=== PATIENT | male | born 1990 | race Caucasian/White ===

== ENCOUNTER 2018-08-31 18:51 | Emergency (ER) | payer OTHER ==
[2018-08-31 18:52] VITALS: BMI 28.8
[2018-08-31 18:58] VITALS: BP 125/83; PULSE 101; RESP 18; TEMP 98; O2SAT 97
[2018-08-31] MEDS ORDERED: Sodium Chloride 0.9% 1,000 ML IV STA (19:32)
[2018-08-31 20:01] LABS: BASO # 0.1 K/uL (0.0-0.2); BASO % 0.9 % (0.0-2.0); EOS # 0.1 K/uL (0.0-0.7); EOS % 0.5 % (0.0-4.0); HEMOGLOBIN 14.2 g/dL (12.0-18.0); LYMPH # 2.4 K/uL (1.0-4.3); LYMPH % 20.5 % (20.0-40.0); MEAN CELL VOLUME 85.2 fl (80.0-94.0); MEAN CORPUSCULAR HEMOGLOBIN 27.5 pg (27.0-31.0); MEAN CORPUSCULAR HGB CONC 32.2 g/dL (33.0-37.0); MONO # 1.1 K/uL (0.0-0.8); MONO % 9.8 % (0.0-10.0); NEUT # 7.8 K/uL (1.8-7.0); NEUT % 68.3 % (50.0-75.0); RBC 5.18 Mil/uL (4.40-5.90); WHITE BLOOD COUNT 11.5 K/uL (4.8-10.8)
[2018-08-31 20:21] LABS: ALB/GLOB RATIO 1.6 (1.0-2.1); ALBUMIN 4.7 g/dL (3.5-5.0); ALT/SGPT 17 U/L (21-72); AST/SGOT 28 U/L (17-59); BLOOD UREA NITROGEN 10 mg/dl (9-20); CALCIUM 9.7 mg/dL (8.4-10.2); GFR NON-AFRICAN AMERICAN > 60
--- NOTE | 2018-08-31 20:30 | ED PDOC ---
HPI: Abdomen Time Seen by Provider: 08/31/18 19:23 Chief Complaint (Nursing): Back Pain Chief Complaint (Provider): Abdominal and Flank Pain History Per: Patient History/Exam Limitations: no limitations Onset/Duration Of Symptoms: Hrs (x4) Associated Symptoms: denies: Nausea, Vomiting Additional Complaint(s): 28 year old Telugu male with a history of kidney stones presents to the ED with right flank and abdominal pain onset 3pm. Patient had a ureteral stent removed on August [address] Cerna and has since had no complications. He is still on Flomax. Today he had sharp, sudden pain, rated 6/7 out of 10 in severity. Patient states pain has resolved since. He denies any hematuria but states urine appears dark in color. Patient denies nausea, vomiting or any other medical complaints. PMD: none provided Past Medical History Reviewed: Historical Data, Nursing Documentation, Vital Signs Vital Signs: Last Vital Signs Temp 98 F 08/31/18 18:56 Pulse 101 H 08/31/18 18:56 Resp 18 08/31/18 18:56 BP 125/83 08/31/18 18:56 Pulse Ox 97 08/31/18 18:56 - Medical History PMH: Kidney Stones, Chronic Kidney Disease - Family History Family History: States: Unknown Family Hx - Social History Current smoker - smoking cessation education provided: No Ex-Smoker (has not smoked in the last 12 months): No Alcohol: None Drugs: Denies - Home Medications Home Medications: Ambulatory Orders Medication Instructions Recorded No Known Home Med 08/12/18 - Allergies Allergies/Adverse Reactions: Allergies Allergy/AdvReac Type Severity Reaction Status Date / Time Sulfa (Sulfonamide Allergy Intermediate ITCHING Verified 08/31/18 18:56 Antibiotics) Review of Systems ROS Statement: Except As Marked, All Systems Reviewed And Found Negative Gastrointestinal: Positive for: Abdominal Pain (and flank pain). Negative for: Nausea, Vomiting Physical Exam - Reviewed Nursing Documentation Reviewed: Yes Vital Signs Reviewed: Yes - Physical Exam Appears: Positive for: Non-toxic, No Acute Distress Head Exam: Positive for: ATRAUMATIC, NORMOCEPHALIC Skin: Positive for: Normal Color, Warm, Dry Eye Exam: Positive for: Normal appearance, EOMI, PERRL Cardiovascular/Chest: Positive for: Regular Rate, Rhythm. Negative for: Murmur Respiratory: Positive for: Normal Breath Sounds. Negative for: Respiratory Distress Gastrointestinal/Abdominal: Positive for: Normal Exam, Soft. Negative for: Tenderness Back: Positive for: Normal Inspection Extremity: Positive for: Normal ROM (upper and lower) Neurological/Psych: Positive for: Awake, Alert, Oriented - Laboratory Results Result Diagrams: 08/31/18 19:45 08/31/18 19:45 Lab Results: Total Bilirubin 0.6 mg/dl (0.2-1.3) 08/31/18 19:45 AST 28 U/L (17-59) 08/31/18 19:45 ALT 17 U/L (21-72) L 08/31/18 19:45 Alkaline Phosphatase 66 U/L (38-126) 08/31/18 19:45 Total Protein 7.6 G/DL (6.3-8.2) 08/31/18 19:45 Albumin 4.7 g/dL (3.5-5.0) 08/31/18 19:45 Globulin 2.9 gm/dL (2.2-3.9) 08/31/18 19:45 Albumin/Globulin Ratio 1.6 (1.0-2.1) 08/31/18 19:45 - ECG O2 Sat by Pulse Oximetry: 97 (RA) Pulse Ox Interpretation: Normal Medical Decision Making Medical Decision Making: Time: 1922 Impression: 28 y/o with renal colic in setting of previous kidney stones Plan: --labs --CT deferred at patients request due to previous imaging and radiation expo sure. Instead KUB ordered. --Patient declined any pain medication. Time: 2149 Abdomen XR FINDINGS: LUNG BASES: The visualized lung bases appear clear. BOWEL: Bowel gas pattern unremarkable. No evidence of obstruction. PERITONEUM/SOFT TISSUES: No free air evident. Suspected 2 mm right lower pole renal calculus is seen. BONES: No aggressive appearing osseous lesion seen. IMPRESSION: No acute intraabdominal abnormality evident. Probable 2 mm right lower pole renal calculus. Time: 2225 --Labs reviewed, no clinically significant abnormalities. Patient remains asymptomatic. Advised to follow up with Dr. Cerna, urologist. Diagnosis renal colic. Scribe Attestation: Documented by Shauna Burger, acting as a scribe for Josr Arcos MD. Provider Scribe Attestation: All medical record entries made by the Scribe were at my direction and personally dictated by me. I have reviewed the chart and agree that the record accurately reflects my personal performance of the history, physical exam, medical decision making, and the department course for this patient. I have also personally directed, reviewed, and agree with the discharge instructions and disposition. Disposition - Clinical Impression Clinical Impression: Renal colic on right side - Disposition Disposition Time: 22:26 Condition: STABLE Instructions: Renal Colic Forms: [employer] (Hong Konger)
[2018-08-31 21:58] LABS: SQUAMOUS EPITHIAL < 1 /hpf (0-5); URINE BILIRUBIN NEGATIVE (NEGATIVE); URINE BLOOD MODERATE (NEGATIVE); URINE CLARITY SLIGHTY-CLOUDY (Clear); URINE COLOR YELLOW (YELLOW); URINE GLUCOSE (UA) NEG (NEGATIVE); URINE LEUKOCYTE ESTERASE NEG Leu/uL (Negative); URINE PROTEIN 100 mg/dL (NEGATIVE); URINE UROBILINOGEN 0.2-1.0 mg/dL (0.2-1.0)
--- NOTE | 2018-09-01 09:08 | RAD ---
Date of service: 08/31/2018 HISTORY: renal colic COMPARISON: 08/06/2018 FINDINGS: BOWEL: There is a tiny possible calcification overlying the lower pole of the right kidney and seen on the prior study. Previously identified right ureteral stent has been removed. No appreciable ureteral calcification or left renal calcification is seen. Bony structures are unchanged. Bowel gas is normal. No pelvic calcification or bladder calcification is suspected. BONES: Unchanged. OTHER FINDINGS: None. IMPRESSION: Tiny calcification overlying the lower pole the right kidney. Status post removal of right ureteral stent.
== END 2018-08-31 22:31 | disposition home or self-care (01) ==
LOC: H.ER 18:51
DX: N23 Unspecified renal colic (principal); N18.9 Chronic kidney disease, unspecified; Z87.442 Personal history of urinary calculi
CPT/HCPCS: 74018; 80053; 81003; 85025; 96360; 99282; J7030

== ENCOUNTER 2018-09-15 23:42 | Emergency (ER) | payer OTHER ==
[2018-09-15 23:43] VITALS: BMI 28.8
[2018-09-16] MEDS ORDERED: Sodium Chloride 0.9% 1,000 ML IV STA (01:00)
[2018-09-16 01:30] LABS: SQUAMOUS EPITHIAL < 1 /hpf (0-5); URINE BILIRUBIN NEGATIVE (NEGATIVE); URINE BLOOD MODERATE (NEGATIVE); URINE CLARITY SLIGHTY-CLOUDY (Clear); URINE COLOR YELLOW (YELLOW); URINE GLUCOSE (UA) NEG (NEGATIVE); URINE HYALINE CAST 0-2 /hpf (0-2); URINE LEUKOCYTE ESTERASE TRACE Leu/uL (Negative); URINE PROTEIN 100 mg/dL (NEGATIVE); URINE UROBILINOGEN 0.2-1.0 mg/dL (0.2-1.0)
[2018-09-16 01:46] LABS: BASO # 0.1 K/uL (0.0-0.2); BASO % 0.8 % (0.0-2.0); EOS # 0.1 K/uL (0.0-0.7); EOS % 0.9 % (0.0-4.0); LYMPH # 2.9 K/uL (1.0-4.3); LYMPH % 24.2 % (20.0-40.0); MEAN CELL VOLUME 84.5 fl (80.0-94.0); MEAN CORPUSCULAR HEMOGLOBIN 27.6 pg (27.0-31.0); MEAN CORPUSCULAR HGB CONC 32.6 g/dL (33.0-37.0); MEAN PLATELET VOLUME 8.3 fl (7.2-11.7); MONO # 1.4 K/uL (0.0-0.8); MONO % 11.9 % (0.0-10.0); NEUT # 7.4 K/uL (1.8-7.0); NEUT % 62.2 % (50.0-75.0); NRBC % 0.1 % (0.0-0.0); RBC 4.72 Mil/uL (4.40-5.90); RED CELL DISTRIBUTION WIDTH 13.7 % (11.5-14.5); WHITE BLOOD COUNT 11.8 K/uL (4.8-10.8)
--- NOTE | 2018-09-16 01:58 | ED PDOC ---
HPI: Male Pain Time Seen by Provider: 09/16/18 00:00 Chief Complaint (Nursing): Male Genitourinary Chief Complaint (Provider): Flank and Bladder Pain History Per: Patient History/Exam Limitations: no limitations Additional Complaint(s): 28 y/o male with history of kidney stones presents to the ED with flank radiatin g around to bladder since yesterday. Patient had a renal stent on his right side taken out a month ago; stent was placed 2 months ago by the urologist. Patient reports he drank lots of liquids and took Tramadol yesterday with no relief. Denies having any feeling of needing to vomit just complaining of pain. Past Medical History Reviewed: Historical Data, Nursing Documentation, Vital Signs Vital Signs: Last Vital Signs Temp 99 F 09/16/18 00:15 Pulse 88 09/16/18 00:15 Resp 18 09/16/18 00:15 BP 129/80 09/16/18 00:15 Pulse Ox 99 09/16/18 00:15 - Medical History PMH: Kidney Stones, Chronic Kidney Disease - Surgical History Surgical History: No Surg Hx - Family History Family History: States: Unknown Family Hx - Social History Current smoker - smoking cessation education provided: No Alcohol: None Drugs: Denies - Home Medications Home Medications: Ambulatory Orders Medication Instructions Recorded Ibuprofen [Motrin] 600 mg PO Q6H PRN #20 tab 09/16/18 Nitrofurantoin Macrocrystals 100 mg PO BID #14 cap 09/16/18 [Macrobid] Tamsulosin [Flomax] 0.4 mg PO DAILY #14 cap 09/16/18 - Allergies Allergies/Adverse Reactions: Allergies Allergy/AdvReac Type Severity Reaction Status Date / Time Sulfa (Sulfonamide Allergy Intermediate ITCHING Verified 08/31/18 18:56 Antibiotics) Review of Systems ROS Statement: Except As Marked, All Systems Reviewed And Found Negative Gastrointestinal: Positive for: Abdominal Pain (bladder and flank). Negative for: Vomiting Physical Exam - Reviewed Nursing Documentation Reviewed: Yes Vital Signs Reviewed: Yes - Physical Exam Appears: Positive for: Well, Non-toxic, No Acute Distress Head Exam: Positive for: ATRAUMATIC, NORMAL INSPECTION, NORMOCEPHALIC Skin: Positive for: Normal Color, Warm, DRY Eye Exam: Positive for: EOMI, Normal appearance, PERRL ENT: Positive for: Normal ENT Inspection Neck: Positive for: Normal, Painless ROM Cardiovascular/Chest: Positive for: Regular Rate, Rhythm. Negative for: Murmur Respiratory: Positive for: Normal Breath Sounds. Negative for: Respiratory Distress Gastrointestinal/Abdominal: Positive for: Bowel Sounds, Soft, Tenderness (mild tenderness over bladder) Back: Positive for: Normal Inspection. Negative for: L CVA Tenderness, R CVA Tenderness, Vertebral Tenderness Extremity: Positive for: Normal ROM. Negative for: Pedal Edema, Deformity Neurological/Psych: Positive for: Awake, Alert, Normal Tone. Negative for: Motor/Sensory Deficits - Laboratory Results Result Diagrams: 09/16/18 01:39 09/16/18 01:39 Lab Results: Urine Color Yellow (YELLOW) 09/16/18 01:15 Urine Clarity Slighty-cloudy (Clear) 09/16/18 01:15 Urine pH 5.0 (5.0-8.0) 09/16/18 01:15 Ur Specific [place] 1.025 (1.003-1.030) 09/16/18 01:15 Urine Protein 100 mg/dL (NEGATIVE) 09/16/18 01:15 Urine Glucose (UA) Neg mg/dL (NEGATIVE) 09/16/18 01:15 Urine Ketones Negative mg/dL (NEGATIVE) 09/16/18 01:15 Urine Blood Moderate (NEGATIVE) 09/16/18 01:15 Urine Nitrate Negative (NEGATIVE) 09/16/18 01:15 Urine Bilirubin Negative (NEGATIVE) 09/16/18 01:15 Urine Urobilinogen 0.2-1.0 mg/dL (0.2-1.0) 09/16/18 01:15 Ur Leukocyte Esterase Trace Spencer/uL (Negative) 09/16/18 01:15 Urine RBC (Auto) 138 /hpf (0-3) H 09/16/18 01:15 Urine Microscopic WBC 1 /hpf (0-5) 09/16/18 01:15 Ur Squamous Epith Cells < 1 /hpf (0-5) 09/16/18 01:15 Hyaline Casts 0-2 /hpf (0-2) 09/16/18 01:15 - ECG O2 Sat by Pulse Oximetry: 99 (RA) Pulse Ox Interpretation: Normal Medical Decision Making Medical Decision Making: Time: 01:00 Initial Impression: r flank pain rule out stone, uti Initial Plan: * CT Abd Pelvis * Labs * IV Fluids * Toradol 02:[address] as well as Toradol as states wants to go natural without medications and also doenst want the radiation from the CT. 03:51 Patient labs are significant for slightly elevated WBC. Urine shows blood and 138 RBC. 05:08 US Renal Findings: Unremarkable left kidney measuring 11x5.8x5.2 cm. Mild right hydronephrosis. Nonobstructing stone in the lower pole of the right kidney measuring 5.4 mm. Unremarkable right kidney measuring 12.2x5.6x5.6 cm. Impression: Nonobstructing stone in the lateral part of the right kidney measuring 5.4 mm. Mild right hydroureteronephrosis. pt aware of US results. states he feels much improved. will follow up with urologist dr cerna as outpt. given po antibitoics, flomax and motrin prn. 06:05 US renal didn't include bladder US; patient disposition pending bladder US results. Patient denies pain at this time. [address] holcomb pending bladder sono and dispo Scribe Attestation: Documented by Delmer Rivera, acting as a scribe Misty Badillo MD Provider Scribe Attestation: All medical record entries made by the Scribe were at my direction and perso teresita dictated by me. I have reviewed the chart and agree that the record accurately reflects my personal performance of the history, physical exam, medical decision making, and the department course for this patient. I have also personally directed, reviewed, and agree with the discharge instructions and disposition Disposition - Clinical Impression Clinical Impression: Renal colic on right side - Patient ED Disposition Is Patient to be Admitted: Yes Counseled Patient/Family Regarding: Studies Performed, Diagnosis, Need For Followup - Disposition Disposition: Transfer of Care Disposition Time: 07:00 Condition: IMPROVED Additional Instructions: follow up with Dr Cerna in 2 days return to the ED with any worsening or concerning symptoms Prescriptions: Ibuprofen [Motrin] 600 mg PO Q6H PRN #20 tab PRN Reason: Pain, Moderate (4-7) Nitrofurantoin Macrocrystals [Macrobid] 100 mg PO BID #14 cap Tamsulosin [Flomax] 0.4 mg PO DAILY #14 cap Instructions: Renal Colic (DC) Forms: [employer] (Yoruba) Patient Signed Over To: Spencer Butterfield Handoff Comments: US
[2018-09-16 02:01] LABS: ALB/GLOB RATIO 1.4 (1.0-2.1); ALBUMIN 4.2 g/dL (3.5-5.0); ALT/SGPT 27 U/L (21-72); AST/SGOT 36 U/L (17-59); BLOOD UREA NITROGEN 18 mg/dl (9-20); GFR NON-AFRICAN AMERICAN > 60
--- NOTE | 2018-09-16 11:34 | US ---
Date of service: 09/16/2018 PROCEDURE: Ultrasound of the Kidneys HISTORY: r flank pain history of stones COMPARISON: 08/31/2018. Plain film radiographs of the abdomen. TECHNIQUE: Sonogram of the kidneys. FINDINGS: RIGHT KIDNEY: Measures: 5.4 x 5.8 x 12.4 cm. Normal in size, contour and echogenicity. Lower pole calculus 4 x 5 mm. Moderate right hydronephrosis identified. LEFT KIDNEY: Measures: 5.8 x 11 cm. Normal in size, contour and echogenicity. No stone, solid mass lesion or hydronephrosis visualized. OTHER FINDINGS: None. IMPRESSION: Moderate, unilateral right hydronephrosis. 4 x 5 mm calculus lower pole right kidney. Concordant findings (preliminary report) provided by [facility].
--- NOTE | 2018-09-16 11:47 | US ---
Date of service: 09/16/2018 PROCEDURE: Ultrasound of the Bladder HISTORY: evaluate if stone COMPARISON: None available. TECHNIQUE: Sonographic evaluation of the bladder was performed. FINDINGS: Unremarkable without wall thickening or intraluminal debris. No calculus or gross mass lesion. No free fluid in pelvis. Bilateral ureteral jets have been captured by color per ultrasound. Prevoid Volume: 1129 cc. Post void residual: 134 cc. IMPRESSION: Postvoid residual measures 12 percent based on prevoid volume of 11.29 cc and PVR 134 cc. Urinary bladder otherwise unremarkable appearing.
--- NOTE | 2018-09-16 12:07 | ED PDOC ---
- Laboratory Results Result Diagrams: 09/16/18 01:39 09/16/18 01:39 Lab Results: Total Bilirubin 0.6 mg/dl (0.2-1.3) 09/16/18 01:39 AST 36 U/L (17-59) 09/16/18 01:39 ALT 27 U/L (21-72) 09/16/18 01:39 Alkaline Phosphatase 64 U/L (38-126) 09/16/18 01:39 Total Protein 7.1 G/DL (6.3-8.2) 09/16/18 01:39 Albumin 4.2 g/dL (3.5-5.0) 09/16/18 01:39 Globulin 3.0 gm/dL (2.2-3.9) 09/16/18 01:39 Albumin/Globulin Ratio 1.4 (1.0-2.1) 09/16/18 01:39 Urine Color Yellow (YELLOW) 09/16/18 01:15 Urine Clarity Slighty-cloudy (Clear) 09/16/18 01:15 Urine pH 5.0 (5.0-8.0) 09/16/18 01:15 Ur Specific [place] 1.025 (1.003-1.030) 09/16/18 01:15 Urine Protein 100 mg/dL (NEGATIVE) 09/16/18 01:15 Urine Glucose (UA) Neg mg/dL (NEGATIVE) 09/16/18 01:15 Urine Ketones Negative mg/dL (NEGATIVE) 09/16/18 01:15 Urine Blood Moderate (NEGATIVE) 09/16/18 01:15 Urine Nitrate Negative (NEGATIVE) 09/16/18 01:15 Urine Bilirubin Negative (NEGATIVE) 09/16/18 01:15 Urine Urobilinogen 0.2-1.0 mg/dL (0.2-1.0) 09/16/18 01:15 Ur Leukocyte Esterase Trace Spencer/uL (Negative) 09/16/18 01:15 Urine RBC (Auto) 138 /hpf (0-3) H 09/16/18 01:15 Urine Microscopic WBC 1 /hpf (0-5) 09/16/18 01:15 Ur Squamous Epith Cells < 1 /hpf (0-5) 09/16/18 01:15 Hyaline Casts 0-2 /hpf (0-2) 09/16/18 01:15 - ECG O2 Sat by Pulse Oximetry: 99 (RA) Pulse Ox Interpretation: Normal Medical Decision Making Medical Decision Makin:00 Patient signed out to me from Dr. King at this time, pending ultrasound. US Bladder result: Accession No. : [id number] Patient Name / ID : GUI JUAN / [id number] Exam Date : 09/16/2018 09:29:50 ( Approved ) Study Comment : Sex / Age : M / 28Y Creator : marquise novak Dictator : Jorge Woodard MD Box Annealer : [employer] Teacher : Jorge Woodard MD Approver2 : Report Date : 09/16/2018 09:19:55 My Comment : Date of service: 09/16/2018 PROCEDURE: Ultrasound of the Bladder HISTORY: evaluate if stone COMPARISON: None available. TECHNIQUE: Sonographic evaluation of the bladder was performed. FINDINGS: Unremarkable without wall thickening or intraluminal debris. No calculus or gross mass lesion. No free fluid in pelvis. Bilateral ureteral jets have been captured by color per ultrasound. Prevoid Volume: 1129 cc. Post void residual: 134 cc. IMPRESSION: Postvoid residual measures 12 percent based on prevoid volume of 11.29 cc and PVR 134 cc. Urinary bladder otherwise unremarkable appearing. Reviewed Renal US from this morning: Accession No. : [id number] Patient Name / ID : GUI JUAN / [id number] Exam Date : 09/16/2018 02:43:27 ( Approved ) Study Comment : Sex / Age : M / 28Y Creator : Tiffanie Bradshaw Dictator : Darrel Collier MD Box Annealer : [employer] Teacher : Darrel Collier MD Approver2 : Report Date : 09/16/2018 03:11:25 My Comment : Date of service: 09/16/2018 PROCEDURE: Ultrasound of the Kidneys HISTORY: r flank pain history of stones COMPARISON: 08/31/2018. Plain film radiographs of the abdomen. TECHNIQUE: Sonogram of the kidneys. FINDINGS: RIGHT KIDNEY: Measures: 5.4 x 5.8 x 12.4 cm. Normal in size, contour and echogenicity. Lower pole calculus 4 x 5 mm. Moderate right hydronephrosis identified. LEFT KIDNEY: Measures: 5.8 x 11 cm. Normal in size, contour and echogenicity. No stone, solid mass lesion or hydronephrosis visualized. OTHER FINDINGS: None. IMPRESSION: Moderate, unilateral right hydronephrosis. 4 x 5 mm calculus lower pole right kidney. 11:51 Discussed findings with patient including right hydronephrosis. Patient verbalizes understanding of plan. Disposition - Clinical Impression Clinical Impression: Renal colic on right side - POA Present On Arrival: None - Disposition Referrals: Daniel Cerna Jr., MD [Staff Provider] - Disposition: Routine/Home Disposition Time: 12:00 Condition: IMPROVED Additional Instructions: follow up with Dr Cerna in 2 days return to the ED with any worsening or concerning symptoms Prescriptions: Ibuprofen [Motrin] 600 mg PO Q6H PRN #20 tab PRN Reason: Pain, Moderate (4-7) Nitrofurantoin Macrocrystals [Macrobid] 100 mg PO BID #14 cap Tamsulosin [Flomax] 0.4 mg PO DAILY #14 cap Instructions: Renal Colic (DC) Forms: [employer] (Albanian)
[2018-09-16 12:25] VITALS: BP 118/70; PULSE 72; RESP 16; TEMP 97.9
[2018-09-17 03:28] VITALS: O2SAT 99
== END 2018-09-16 12:10 | disposition home or self-care (01) ==
LOC: H.ER 23:42
DX: N23 Unspecified renal colic (principal); Z87.442 Personal history of urinary calculi; Z88.2 Allergy status to sulfonamides
CPT/HCPCS: 76770; 76856; 80053; 81003; 85025; 87086; 96360; 99284; J7030